=== PATIENT | male | born 1950 | race Caucasian/White ===

== ENCOUNTER 2016-05-08 11:36 | Emergency (ER) | payer MEDICARE ==
[2014-11-19 09:04] VITALS: BMI 35.3
[~2016-05-08 11:36] MED LIST: AMITRIPTYLINE H50 MG PO; BAYER CHEWABLE81 MG PO; CELEXA20 MG PO; FLOMAX0.4 MG PO; LIPITOR20 MG PO; MOBIC7.5 MG PO; MORPHINE SULFAT30 M4 PO; PRINIVIL20 MG PO; TIROSINT125 MCG PO; TOPROL XL100 MG PO; TRICOR145 MG PO; VITAMIN D5000 UNIT PO
== END 2016-05-08 12:00 | disposition left against medical advice (07) ==
LOC: D.ER 11:36
DX: T15.92XA Foreign body on external eye, part unspecified, left eye, initial encounter (principal); X58.XXXA Exposure to other specified factors, initial encounter; Y93.9 Activity, unspecified; Y92.9 Unspecified place or not applicable

== ENCOUNTER → 2017-09-21 08:07 | Outpatient (CLI) | payer MEDICARE ==
[2014-11-19 09:04] VITALS: BMI 35.3
== END | disposition home or self-care (01) ==
LOC: D.CT 08:00
DX: M79.89 Other specified soft tissue disorders (principal)

== ENCOUNTER → 2017-10-16 07:29 | Outpatient (CLI) | payer MEDICARE ==
[2014-11-19 09:04] VITALS: BMI 35.3
== END | disposition home or self-care (01) ==
LOC: D.RT 07:29
DX: R06.02 Shortness of breath (principal)

== ENCOUNTER → 2017-11-02 10:02 | Outpatient (CLI) | payer MEDICARE ==
[2014-11-19 09:04] VITALS: BMI 35.3
== END | disposition home or self-care (01) ==
LOC: D.CT 10:02
DX: J44.9 Chronic obstructive pulmonary disease, unspecified (principal)

== ENCOUNTER → 2017-11-29 07:52 | Outpatient (CLI) | payer MEDICARE ==
[2014-11-19 09:04] VITALS: BMI 35.3
== END | disposition home or self-care (01) ==
LOC: D.CT 07:52
DX: J84.10 Pulmonary fibrosis, unspecified (principal)

== ENCOUNTER 2018-03-13 08:41 | Inpatient (IN) | payer MEDICARE ==
[2018-03-13] VITALS (12 sets, daily range): BP systolic 78–125; BP diastolic 42–72; Ht 185.4 cm; Wt 123.9 kg
[~2018-03-13] VITALS: Ht 185.4 cm; Wt 123.9 kg
[2018-03-13] MEDS ORDERED: SPIRIVA RESPIMAT4 G1 INH (08:47)
[2018-03-13] MEDS ORDERED: SYMBICORT 16010.2 GM INH (08:47)
[2018-03-13] MEDS ORDERED: BENADRYL25 MG PO (08:47)
[2018-03-13] MEDS ORDERED: VENTOLIN HFA18 GM INH (08:47)
--- NOTE | 2018-03-13 09:12 | NUR ---
PT PLACED ON DROPLET PRECATIONS ISOLATION D/T REPORTS OF POSITIVE INFUENZA TEST JUST GRINDER SET UP OPERATOR INTERNAL AT OUTSIDE FACILITY.
[2018-03-13 09:37] LABS: BASOPHILS 0.2 % (0-2); EOSINOPHILS 0.4 % (0-7); HEMATOCRIT 39.2 % (42.0-54.0); IMMATURE GRANULOCYTES 0.2 % (0-5); LYMPHOCYTES 11.7 % (15-50); MCH 29.4 pg (26.0-34.0); MCHC 33.2 g/dL (31.0-37.0); MCV 88.7 fL (80.0-100.0); MEAN PLATELET VOLUME 10.2 fL (7.4-10.4); MONOCYTES 8.4 % (2-11); NEUTROPHILS 79.1 % (40-80); PLATELET COUNT 238 10x3/uL (130-400); RBC 4.42 10x6/uL (4.20-6.10); RDW 13.8 % (11.5-14.5); WBC 8.2 10x3/uL (4.8-10.8)
[2018-03-13 09:40] LABS: APTT 33.6 SECONDS (22.8-39.4); INR 0.95 (0.85-1.17); PROTIME 12.2 SECONDS (11.6-15.0)
[2018-03-13 09:50] LABS: ALBUMIN 3.4 g/dL (3.4-5.0); ALKALINE PHOSPHATASE 92 U/L (46-116); ALT (SGPT) 38 U/L (10-68); BILIRUBIN - TOTAL 0.29 mg/dL (0.2-1.3); CALC OSMOLALITY 279 mosm/kg (275-300); CALCIUM 8.6 mg/dL (8.5-10.1); CARBON DIOXIDE 31.3 mmol/L (21.0-32.0); CHLORIDE - SERUM 98 mmol/L (98-107); CREATININE - SERUM 1.8 mg/dL (0.6-1.3); GLUCOSE 114 mg/dL (74-106); POTASSIUM - SERUM 3.8 mmol/L (3.5-5.1); PROTEIN - SERUM 7.5 g/dL (6.4-8.2); SODIUM 138 mmol/L (136-145); UREA NITROGEN 21 mg/dL (7-18); eGFR NON AFRICAN AMERICAN 40 mL/min (90-120)
[2018-03-13 09:56] LABS: CKMB 1.9 U/L (0.0-3.6); CREATINE KINASE 169 UL (21-232); MAGNESIUM - SERUM 2.1 mg/dL (1.8-2.4); PRO BNP 68 pg/mL (0-125); TROPONIN-I < 0.017 ng/mL (0.000-0.060)
--- NOTE | 2018-03-13 10:37 | NUR ---
PT ASSISTED TO THE BATHROOM AND THEN BACK TO ROOM. RECLINING CHAIR PROVIDED FOR PT COMFORT. WATER PROVIDED UPON REQUEST. PT AWARE HE CANNOT HAVE BLANKET AT THIS TIME D/T ELEVATED TEMP.
--- NOTE | 2018-03-13 11:37 | NUR ---
ORDERED LEVAQUIN THAT WAS INITIATED AT 0956, COMPLETE AT 1136.
--- NOTE | 2018-03-13 13:17 | NUR ---
DR. MILIAN NOTIFIED BY THIS NURSE THAT PT'S BP TRENDING DOWNWARDS AND PT IS HYPOTENSIVE AT 78/55. ONE LITER NS BOLUS ADMINISTERED AT THIS TIME. DR. MILIAN STATES HE WILL SEE PT IN ED SHORTLY.
--- NOTE | 2018-03-13 14:26 | NUR ---
NS BOLUS INITIATED AT 1316 COMPLETE AT 1426.
--- NOTE | 2018-03-13 14:30 | NUR ---
DR. RODRIGUES ROUNDING. THIS NURSE WHEN PT GOT ON FLOOR TOLD LUANA VO TO PUT ISOLATION SIGN ON DOOR BUT INSTEAD PUT IT ON NURSES STATION COUNTER AND TOLD OTHER LUANA TORIBIO TO PUT IT ON DOOR LATER BUT DR. TOWNSEND WAS ALREADY IN ROOM. WAS VERY UPSET. ISOLATION GOWNS AND MASK AND GLOVES WERE OUTSIDE OF DOOR JUST NOT SIGN.
--- NOTE | 2018-03-13 16:06 | NUR ---
PT ARRIVED TO MED 2 BY BED WITH ER NURSE. CL IN REACHL. PT DENIES NEEDS OR PAIN. WCTM
--- NOTE | 2018-03-13 16:30 | NUR ---
ISOLATION SIGN ON DOOR AND ISOLATION PRECAUTIONS IN PLACE.
--- NOTE | 2018-03-13 17:45 | NUR ---
PT SITTING UP IN BED. CL IN REACH. PT DENIES NEEDS OR PAIN. ISOLATION PRECAUTIONS UP.
--- NOTE | 2018-03-13 19:15 | NUR ---
TO PT ROOM - C/O SEVERE CHEST PAIN FROM ACID REFLUX AND NAUSEA. PAIN 7/10. PT STATES THAT THE PAIN DOES NOT RADIATE, OR HURT ANYWHERE ELSE, IT IS JUST SEVER EPIGASTRIC PAIN. PT WAS NOT HOOKED UP TO ANY FLUIDS, BUT HAS IV ACCESS IN L AC. ADMINISTERED PRESCRIBED ANALGESID AND ANTIEMETIC PER MD ORDERS. PT STATED CONCERNS OF TAMIFLU CAUSING EPIGASTRIC PAIN. EDUCATED PT THAT HIS PAIN HAD NOT BEEN CONTROLLED ALL DAY AND THAT IF THE TAMIFLU WAS CAUSING THE PAIN, WE COULD STOP IT AFTER THE INITIAL PAIN MEDICATION, IF THE ANALGESIC WAS NOT WORKING. REASSESSED PAIN 30 MIN LATER AND WAS AT 4/10, WHICH WAS BEARABLE FOR THE PATIENT. PT AGREED TO CONTINUE TAMIFLU. DROPLET PRECAUTIONS IN EFFECT. WCTM AND FOLLOW POC. SR UP X2, CL IN REACH, NS NOW RUNNING AT 100 ML/HR PER MD ORDER. IV SITE WNL, AT BEDSIDE.
[2018-03-14 00:14] VITALS: BP 100/63
[2018-03-14 04:00] VITALS: BP 122/76
--- NOTE | 2018-03-14 05:02 | NUR ---
PT RESTING QUIETLY IN BED, NO PAIN OR DISCOMFORT NOTED AT THIS TIME. NO S/S OF DISTRESS, RR EVEN AND UL. AT BEDSIDE. NS INFUSING AT 100 ML/HR. CL IN REACH, SR UP X2, BED IN LOW POSITION. WILL CONTINUE TO OBSERVE.
[2018-03-14 06:16] LABS: BASOPHILS 0.1 % (0-2); EOSINOPHILS 0 % (0-7); HEMATOCRIT 35.9 % (42.0-54.0); HEMOGLOBIN 11.7 g/dL (13.5-17.5); IMMATURE GRANULOCYTES 0.1 % (0-5); LYMPHOCYTES 8.2 % (15-50); MCH 28.9 pg (26.0-34.0); MCHC 32.6 g/dL (31.0-37.0); MCV 88.6 fL (80.0-100.0); MEAN PLATELET VOLUME 10.5 fL (7.4-10.4); MONOCYTES 8.5 % (2-11); NEUTROPHILS 83.1 % (40-80); PLATELET COUNT 212 10x3/uL (130-400); RBC 4.05 10x6/uL (4.20-6.10); WBC 9.4 10x3/uL (4.8-10.8)
[2018-03-14 06:30] LABS: ANION GAP 11.8 mmol/L (8-16); CALCIUM 7.7 mg/dL (8.5-10.1); CARBON DIOXIDE 29.3 mmol/L (21.0-32.0); CREATININE - SERUM 1.4 mg/dL (0.6-1.3); MAGNESIUM - SERUM 2.2 mg/dL (1.8-2.4); PHOSPHOROUS 3.4 mg/dL (2.5-4.9); POTASSIUM - SERUM 4.1 mmol/L (3.5-5.1)
--- NOTE | 2018-03-14 07:30 | NUR ---
RESTING QUIETLY IN BED WITH EYES CLOSED. RESP EVEN,NONLABORED. FAMILY AT BEDSIDE.
[2018-03-14 08:03] VITALS: BP 155/77
--- NOTE | 2018-03-14 08:30 | NUR ---
ASSESSMENT COMPLETE. IV TO L AC PATENT. DROPLET ISOLATION. O2 2L NC IN USE. FAMILY AT BEDSIDE. DENIES ANY NEEDS AT THIS TIME.
[2018-03-14 09:11] LABS: APPEARANCE CLEAR (CLEAR); BACTERIA FEW /hpf (NONE SEEN); BILIRUBIN NEGATIVE (NEGATIVE); CALCIUM OXALATE CRYSTALS 0-5 /hpf (NONE SEEN); COLOR DK YELLOW (YELLOW); EPITHELIAL CELLS 0-5 /hpf (0-5); GLUCOSE NEGATIVE (NEGATIVE); KETONE NEGATIVE (NEGATIVE); MUCUS <1+ /lpf (NONE SEEN); NITRITE NEGATIVE (NEGATIVE); PROTEIN TRACE mg/dL (NEGATIVE); UROBILINOGEN NORMAL (NORMAL); WHITE CELLS - URINE RARE /hpf (0-5)
[2018-03-14 11:30] VITALS: BP 114/76
--- NOTE | 2018-03-14 12:00 | NUR ---
NO CHANGES NOTED AT THIS TIME.
--- NOTE | 2018-03-14 14:25 | NUR ---
DENIES ANY NEEDS AT THIS TIME. FAMILY AT BEDSIDE.
--- NOTE | 2018-03-14 15:00 | NUR ---
DR MILIAN BY TO SEE PATIENT. PATIENT NOTIFIED OF PAIN WITH SWALLOWING FOOD IN CHEST. DENIES ANY PAIN DOWN EITHER ARM OR JAW PAIN. PAIN ONLY OCCURS WITH SWALLOWING.
--- NOTE | 2018-03-14 15:55 | NUR ---
CALLED TO ROOM BY PATIENT. BLOOD NOTED ON FACE FROM NOSE DOWN TO CHIN. FACE CLEANED. NO FURTHER BLEEDING NOTED FROM NOSE. HUMIDITY APPLIED TO O2. SITTING UP IN CHAIR. CALL LIGHT WITHIN REACH.
[2018-03-14 17:02] VITALS: BP 129/65
--- NOTE | 2018-03-14 18:23 | NUR ---
MORPHINE GIVEN SLOW IVP FOR COMPLAINT OF BACK PAIN. FAMILY AT BEDSIDE. DENIES ANY NEEDS AT THIS TIME.
--- NOTE | 2018-03-14 19:45 | NUR ---
INITIAL ROUNDS COMPLETED - PT SITTING UP IN CHAIR. SLIGHT DISCOMFORT IN CHEST FROM ACID REFLUX, BUT PT STATES IT IS BEARABLE. OFFERED PAIN MEDICATION, PT DENIES NEED. RR EVEN AND UL, ON 2L OF VIA NC. AT BEDSIDE. IV PATENT AND GOOD BLOOD RETURN. A/0 X4, DENIES FURTHER NEEDS AT THIS TIME. WILL CONTINUE TO OBSERVE AND FOLLOW POC. DROPLET PRECAUTIONS IN EFFECT. CL IN REACH, SR UP X2, BED IN LOW POSITION.
[2018-03-14 20:00] VITALS: BP 151/68
[2018-03-15] VITALS (7 sets, daily range): BP systolic 133–158; BP diastolic 69–89
--- NOTE | 2018-03-15 03:55 | NUR ---
PT RESTING QUIETLY WITH EYES CLOSED. NO S/S OF DISTRESS, RR EVEN AND UL. AT BEDSIDE. 02 ON AT 2L VIA NC. NO NEEDS NOTED AT THIS TIME. WILL CONTINUE TO MONITOR NEEDS. CL IN REACH, SR UP X2, BED IN LOWEST POSITION. DROPLET PRECAUTIONS IN EFFECT.
[2018-03-15 06:09] LABS: BASOPHILS 0.2 % (0-2); EOSINOPHILS 0.6 % (0-7); HEMATOCRIT 35.9 % (42.0-54.0); HEMOGLOBIN 11.5 g/dL (13.5-17.5); IMMATURE GRANULOCYTES 0.2 % (0-5); LYMPHOCYTES 15.8 % (15-50); MCH 28.4 pg (26.0-34.0); MCV 88.6 fL (80.0-100.0); MEAN PLATELET VOLUME 10.6 fL (7.4-10.4); MONOCYTES 8.5 % (2-11); NEUTROPHILS 74.7 % (40-80); PLATELET COUNT 214 10x3/uL (130-400); RBC 4.05 10x6/uL (4.20-6.10); RDW 13.7 % (11.5-14.5)
[2018-03-15 06:33] LABS: CALCIUM 8.3 mg/dL (8.5-10.1); CARBON DIOXIDE 29.9 mmol/L (21.0-32.0); CHLORIDE - SERUM 103 mmol/L (98-107); GLUCOSE 106 mg/dL (74-106); POTASSIUM - SERUM 3.8 mmol/L (3.5-5.1); SODIUM 141 mmol/L (136-145); eGFR NON AFRICAN AMERICAN 90 mL/min (90-120)
[2018-03-15 06:34] LABS: CALC OSMOLALITY 280 mosm/kg (275-300); CREATININE - SERUM 0.9 mg/dL (0.6-1.3); UREA NITROGEN 12 mg/dL (7-18)
[2018-03-15 06:38] LABS: WBC 6.2 10x3/uL (4.8-10.8)
--- NOTE | 2018-03-15 07:35 | NUR ---
REPORT RECEIVED. WILL CONTINUE WITH POC. PT CURRENTLY LYING SEMI FOWLERS. CALL LIGHT W/I REACH. AT BEDSIDE. RR EVEN AND UNLABORED ON 2L 02. PIV IS SALINE LOCKED. PT COMPLAINS OF HEARTBURN. REASSURED PT THAT I WOULD LOOK INTO CURRENT MEDS AND CALL PHYSICIAN IF THERE IS NO IMPROVEMENT. PT DENIES ANY FURTHER NEEDS. WILL CTM.
--- NOTE | 2018-03-15 10:54 | NUR ---
RESTS IN ISOLATION ROOM. AT BS. CALL LIGHT IN REACH. WILL CONT. PLAN OF CARE.
--- NOTE | 2018-03-15 12:05 | NUR ---
REPORTED PT INDIGESTION AND DIARRHEA TO CATE GOODWIN WHO THEN INSTRUCTED ME TO ORDER CDT AND CONSULT GI. CONSULT ORDERED TO . WILL COLLECT NEXT BM FOR SAMPLE. AT BEDSIDE. ABX INFUSION COMPLETE AND PIV IS SALINE LOCKED. PT REFUSED FSBS STATING, "I AM NOT A DIABETIC." WILL CTM.
[2018-03-15 16:18] LABS: CKMB 2.4 U/L (0.0-3.6); CREATINE KINASE 135 UL (21-232)
[2018-03-15 16:20] LABS: TROPONIN-I < 0.017 ng/mL (0.000-0.060)
--- NOTE | 2018-03-15 18:21 | NUR ---
PT CURRENTLY SITTING IN CHAIR. CALL LIGHT W/I REACH. RR EVEN AND UNLABORED ON 2L 02. PT DENIES ANY NEEDS AT THIS TIME. WILL PASS REPORT AND CONTINUE WITH POC.
--- NOTE | 2018-03-15 19:53 | NUR ---
REPORT RECEIVED. PT SITTING UP IN BED WITH EYES OPEN, RR EVEN AND UNLABORED. OXYGEN AT 2 LITERS BY NASAL CANNULA. INTRODUCED SELF TO PT. PT DENIES FURTHER NEEDS. DROPLET PRECAUTIONS IN PLACE ON DOOR. NO S/S OF DISTRESS NOTED. BED IN LOW POSITION. CALL LIGHT IN REACH. WILL CTM.
--- NOTE | 2018-03-15 21:52 | NUR ---
ADMINISTERED ORDERED ANALGESIC FOR COMPLAINTS OF PAIN IN LOWER BACK, PT STATES THE PAIN IS A 3 OR 4 HOWEVER THE PT STATES THE PAIN IS UNBEARABLE.
[2018-03-15 23:34] LABS: CKMB 1.7 U/L (0.0-3.6); CREATINE KINASE 116 UL (21-232)
[2018-03-15 23:35] LABS: TROPONIN-I < 0.017 ng/mL (0.000-0.060)
--- NOTE | 2018-03-16 01:23 | NUR ---
PT LYING IN BED WITH EYES OPEN, RR EVEN AND UNLABORED. OXYGEN AT 2 LITERS BY NASAL CANNULA. AT BEDSIDE. LEFT AC IV DRESSING CHANGED. DENIES FURTHER NEEDS. CALL LIGHT IN REACH. WILL CTM.
[2018-03-16 03:22] LABS: BASOPHILS 0.2 % (0-2); EOSINOPHILS 0.8 % (0-7); HEMATOCRIT 34.5 % (42.0-54.0); HEMOGLOBIN 11.2 g/dL (13.5-17.5); IMMATURE GRANULOCYTES 0.2 % (0-5); LYMPHOCYTES 18.2 % (15-50); MCH 28.2 pg (26.0-34.0); MCHC 32.5 g/dL (31.0-37.0); MCV 86.9 fL (80.0-100.0); MEAN PLATELET VOLUME 9.8 fL (7.4-10.4); MONOCYTES 8.3 % (2-11); NEUTROPHILS 72.3 % (40-80); PLATELET COUNT 222 10x3/uL (130-400); RBC 3.97 10x6/uL (4.20-6.10); RDW 13.3 % (11.5-14.5); WBC 5.2 10x3/uL (4.8-10.8)
--- NOTE | 2018-03-16 03:22 | NUR ---
PT LYING IN BED WITH EYES CLOSED, RR EVEN AND UNLABORED. NO S/S OF DISTRESS. BED IN LOW POSITION. AT BEDSIDE. CALL LIGHT IN REACH. WILL CTM.
[2018-03-16 03:49] LABS: CALC OSMOLALITY 278 mosm/kg (275-300); CALCIUM 8.3 mg/dL (8.5-10.1); CHLORIDE - SERUM 101 mmol/L (98-107); CKMB 1.8 U/L (0.0-3.6); CREATINE KINASE 105 UL (21-232); CREATININE - SERUM 1.1 mg/dL (0.6-1.3); GLUCOSE 126 mg/dL (74-106); SODIUM 139 mmol/L (136-145); UREA NITROGEN 9 mg/dL (7-18); eGFR NON AFRICAN AMERICAN 71 mL/min (90-120)
[2018-03-16 03:50] LABS: POTASSIUM - SERUM 3.1 mmol/L (3.5-5.1); TROPONIN-I < 0.017 ng/mL (0.000-0.060)
[2018-03-16 03:55] VITALS: BP 154/90
--- NOTE | 2018-03-16 04:18 | NUR ---
RN NOTE: PATIENT IS RESTING COMFORTABLY IN BED. RESPIRATIONS ARE EVEN AND UNLABORED. NO S/S OF DISTRESS. CALL LIGHT WITHIN REACH. WILL CPOC.
--- NOTE | 2018-03-16 06:27 | NUR ---
PT LYING IN BED WITH EYES OPEN, RR EVEN AND UNLABORED. AT BEDSIDE. MORNING MEDICATIONS ADMINISTERED WITHOUT ISSUE. PT DENIES FURTHER NEEDS, CONTINUES TO REFUSE FINGERSTICK BLOOD SUGARS. STATES HE IS NOT A DIABETIC. CALL LIGHT IN REACH. WILL CTM.
[2018-03-16] MEDS ORDERED: TAMIFLU75 MG PO (08:42)
[2018-03-16] MEDS ORDERED: LEVAQUIN750 MG PO (08:42)
[2018-03-16] MEDS ORDERED: CARAFATE1 G PO (08:43)
[2018-03-16] MEDS ORDERED: PROTONIX40 MG PO (08:43)
--- NOTE | 2018-03-16 09:53 | NUR ---
PT LYING IN BED. NO REQUESTS/CONCERNS AT THIS TIME. CL IN REACH. SRX2.
--- NOTE | 2018-03-16 10:25 | NUR ---
RESTS IN ISOLATION. RESTS IN BED WITH EYES CLOSED. CALL LIGHT IN REACH. WILL MONITOR NEEDS.
[2018-03-16 10:41] VITALS: BP 146/82
--- NOTE | 2018-03-16 11:05 | NUR ---
PT IS 91% O2 AT REST ON R/A. PUT O2 ON 1L
--- NOTE | 2018-03-16 12:20 | NUR ---
PT WAS ON 1L OF OXYGEN SATTING 98%. TOOK PT OFF FOR OVER 10 MINUTES AND PATIENT MAINTAINED HIS SAT AT 97%
[2018-03-16] MEDS ORDERED: SPIRIVA18 MCG INH (16:12)
[2018-03-16] MEDS ORDERED: SYMBICORT 16010.2 GM INH (16:12)
[2018-03-16] MEDS ORDERED: IPRAT-ALBUT 0.5-3 ML UPD (16:14)
[2018-03-16] MEDS ORDERED: VENTOLIN HFA18 GM INH (16:14)
[2018-03-16 17:11] VITALS: BP 146/66
--- NOTE | 2018-03-16 17:23 | MORECARE ---
CASE MANAGEMENT DISCHARGE SUMMARY PATIENT: BAUDILIO SWARTZ UNIT: [id number] ADM DATE: 03/13/18 AGE: 67 : 54 SEX: M ROOM/BED: D.2140 AUTHOR: FIDE LE PHYSICIAN: REFERRING PHYSICIAN: SEAN MILIAN MD DATE OF SERVICE: 03/16/18 Discharge Plan Patient Name: BAUDILIO SWARTZ [facility] [facility] 1950 Planned Disposition: Home Anticipated Discharge Date: 03/16/18 Discharge Date: Expected LOS: 3 Initial Reviewer: [email or web address] Initial Review Date: 03/13/2018 Generated: 03/16/18 6:23 pm DCPIA - Discharge Planning Initial Assessment Updated by [email or web address]: Ann España on 03/16/18 5:20 pm * Is the patient Alert and Oriented? Yes * How many steps to enter\exit or inside your home? 3/4 * PCP NO PCP * Pharmacy [facility] * Preadmission Environment Home with Family * ADLs Independent * Equipment Oxygen * Other Equipment Obtained a walker and nebulizer today for discharge to home. * List name and contact numbers for known caregivers / representatives who currently or will assist patient after discharge: Elodia Swartz- - [phone] * Verbal permission to speak to the caregivers and representatives has been obtained from the patient. Yes * Community resources currently utilized None * Please name any agencies selected above. N/A * Additional services required to return to the preadmission environment? No * Can the patient safely return to the preadmission environment? Yes * Has this patient been hospitalized within the prior 30 days at any hospital? No Patient Name: BAUDILIO SWARTZ Page [id number] at 1723 All edits/amendments must be made on the electronic document DICTATION DATE: 03/16/181721 WAITSTAFF: XOCHILT 03/16/181721 RPT#: [id number] DC DATE: STATUS: ADM IN [facility] [address] [place] [address] END OF REPORT
--- NOTE | 2018-03-16 17:36 | MORECARE ---
CASE MANAGEMENT DISCHARGE SUMMARY PATIENT: BAUDILIO SWARTZ UNIT: [id number] ADM DATE: 03/13/18 AGE: 67 : 54 SEX: M ROOM/BED: D.2140 AUTHOR: REY,DOC PHYSICIAN: REFERRING PHYSICIAN: SEAN MILIAN MD DATE OF SERVICE: 03/16/18 Discharge Plan Patient Name: BAUDILIO SWARTZ Facility: [facility]:[place] : 1950 Planned Disposition: Home Anticipated Discharge Date: 03/16/18 Discharge Date: Expected LOS: 3 Initial Reviewer: [email or web address] Initial Review Date: 03/13/2018 Generated: 03/16/18 6:36 pm Comments DCP- Discharge Planning Updated by [email or web address]: Ann España on 03/16/18 4:[address] LATE ENTRY 1140 PATIENT'S HAD CALLED [facility] FOR A WALKER. MD ORDER OBTAINED AND FACE SHEET FAXED WITH ORDER FOR DELIVERY OF THE WALKER TO THE PATIENT'S ROOM. KELLI SPOKE WITH THE PRIMARY NURSE REGARDING O2 SAT LEVELS FOR POSSIBLE PORTABLE OXYGEN . PATIENT HAS HOME O2 AND STATIONARY UNIT FOR OXYGEN VIA NASAL CANNULA AT NIGHT. HE WAS ADMITTED W/ RESP FAILURE, HYPOXIA, AECOPD AND POSITIVE FOR FLU. PATIENT WILL ALSO NEED A NEBULIZER. 1240 KELLI SPOKE WITH EZEKIEL FROM [facility]. HE WILL DELIVER THE NEBULIZER TO THE PATIENT'S HOME. NEW MDI OBTAINED FROM PHARMACY TO INSTRUCT THE PATIENT IS USE. PATIENT'S IS AT THE BEDSIDE. SHE WILL PROVIDE TRANSPORTATION TO HOME. THE WALKER IS AT THE BEDSIDE. PATIENT HAS 3/4 STEPS TO ENTER HIS HOME. HE HAS A RAILING. HE DENIES ANY NEEDS. EXPRESSED SOME CONCERN REGARDING DUONEBS. DISCUSSED WITH THE SELLING UNDERWRITER. HIS PHARMACY IS CLOSED. WILL ASSIST WITH DUONEBS FOR THE WEEKEND. PATIENT WILL HAVE TO CHECK THE COST WITH HIS PHARMACY. DCPIA - Discharge Planning Initial Assessment Updated by [email or web address]: Ann España on 03/16/18 5:20 pm * Is the patient Alert and Oriented? Yes * How many steps to enter\exit or inside your home? 3/4 * PCP NO PCP * Pharmacy [facility] * Preadmission Environment Home with Family * ADLs Independent * Equipment Oxygen * Other Equipment Obtained a walker and nebulizer today for discharge to home. * List name and contact numbers for known caregivers / representatives who currently or will assist patient after discharge: Elodia Swartz- - [phone] * Verbal permission to speak to the caregivers and representatives has been obtained from the patient. Yes * Community resources currently utilized None * Please name any agencies selected above. N/A * Additional services required to return to the preadmission environment? No * Can the patient safely return to the preadmission environment? Yes * Has this patient been hospitalized within the prior 30 days at any hospital? No Last DP export: 03/16/18 4:23 p Patient Name: BAUDILIO SWARTZ Page [id number] at 1736 All edits/amendments must be made on the electronic document DICTATION DATE: 03/16/181735 ADMINISTRATIVE HEARING OFFICER: XOCHILT 03/16/181735 RPT#: [id number] DC DATE: STATUS: ADM IN [facility] [address] [place] [address] END OF REPORT
--- NOTE | 2018-03-16 18:18 | NUR ---
PT ESCORTED OUT VIA WHEELCHAIR WITH AID TO POV
--- NOTE | 2018-03-18 09:31 | MORECARE ---
CASE MANAGEMENT DISCHARGE SUMMARY PATIENT: BAUDILIO SWARTZ UNIT: [id number] ADM DATE: 03/13/18 AGE: 67 : 54 SEX: M ROOM/BED: D.2140 AUTHOR: REY,DOC PHYSICIAN: REFERRING PHYSICIAN: SEAN MILIAN MD DATE OF SERVICE: 03/18/18 Discharge Plan Patient Name: BAUDILIO SWARTZ Facility: [facility]:[place] : 1950 Planned Disposition: Home Anticipated Discharge Date: 03/16/18 Discharge Date: 03/16/2018 Expected LOS: 3 Initial Reviewer: [email or web address] Initial Review Date: 03/13/2018 Generated: 03/18/18 10:30 am Comments DCP- Discharge Planning Updated by [email or web address]: Ann España on 03/16/18 4:[address] LATE ENTRY 1140 PATIENT'S HAD CALLED [facility] FOR A WALKER. MD ORDER OBTAINED AND FACE SHEET FAXED WITH ORDER FOR DELIVERY OF THE WALKER TO THE PATIENT'S ROOM. KELLI SPOKE WITH THE PRIMARY NURSE REGARDING O2 SAT LEVELS FOR POSSIBLE PORTABLE OXYGEN . PATIENT HAS HOME O2 AND STATIONARY UNIT FOR OXYGEN VIA NASAL CANNULA AT NIGHT. HE WAS ADMITTED W/ RESP FAILURE, HYPOXIA, AECOPD AND POSITIVE FOR FLU. PATIENT WILL ALSO NEED A NEBULIZER. 1240 KELLI SPOKE WITH EZEKIEL FROM [facility]. HE WILL DELIVER THE NEBULIZER TO THE PATIENT'S HOME. NEW MDI OBTAINED FROM PHARMACY TO INSTRUCT THE PATIENT IS USE. PATIENT'S IS AT THE BEDSIDE. SHE WILL PROVIDE TRANSPORTATION TO HOME. THE WALKER IS AT THE BEDSIDE. PATIENT HAS 3/4 STEPS TO ENTER HIS HOME. HE HAS A RAILING. HE DENIES ANY NEEDS. EXPRESSED SOME CONCERN REGARDING DUONEBS. DISCUSSED WITH THE MINI LAB OPERATOR. HIS PHARMACY IS CLOSED. WILL ASSIST WITH DUONEBS FOR THE WEEKEND. PATIENT WILL HAVE TO CHECK THE COST WITH HIS PHARMACY. DCPIA - Discharge Planning Initial Assessment Updated by [email or web address]: Ann España on 03/16/18 5:20 pm * Is the patient Alert and Oriented? Yes * How many steps to enter\exit or inside your home? 3/4 * PCP NO PCP * Pharmacy [facility] * Preadmission Environment Home with Family * ADLs Independent * Equipment Oxygen * Other Equipment Obtained a walker and nebulizer today for discharge to home. * List name and contact numbers for known caregivers / representatives who currently or will assist patient after discharge: Elodia Swartz- - [phone] * Verbal permission to speak to the caregivers and representatives has been obtained from the patient. Yes * Community resources currently utilized None * Please name any agencies selected above. N/A * Additional services required to return to the preadmission environment? No * Can the patient safely return to the preadmission environment? Yes * Has this patient been hospitalized within the prior 30 days at any hospital? No Last DP export: 03/16/18 4:36 p Patient Name: BAUDILIO SWARTZ Page [phone] at 0931 All edits/amendments must be made on the electronic document DICTATION DATE: 03/18/18929 AREA SALES MANAGER: XOCHILT 03/18/18929 RPT#: [id number] DC DATE:03/16/18 STATUS: DIS IN [facility] [address] [place] [address] END OF REPORT
== END 2018-03-16 18:21 | disposition home or self-care (01) | DRG 177 ==
LOC: D.ER 08:41 → D.EDHOLD 09:46 → D.M2 09:46
PROVIDERS: Emergency Medicine; ADMIT Internal Medicine Nephrology
DX: J11.08 Influenza due to unidentified influenza virus with specified pneumonia (principal); J96.01 Acute respiratory failure with hypoxia; J15.6 Pneumonia due to other Gram-negative bacteria; R57.1 Hypovolemic shock; J44.0 Chronic obstructive pulmonary disease with (acute) lower respiratory infection; J44.1 Chronic obstructive pulmonary disease with (acute) exacerbation; N17.9 Acute kidney failure, unspecified; J13 Pneumonia due to Streptococcus pneumoniae; I10 Essential (primary) hypertension; E78.5 Hyperlipidemia, unspecified; I25.10 Atherosclerotic heart disease of native coronary artery without angina pectoris; D64.9 Anemia, unspecified; E03.9 Hypothyroidism, unspecified; E11.21 Type 2 diabetes mellitus with diabetic nephropathy; F32.9 Major depressive disorder, single episode, unspecified; F41.9 Anxiety disorder, unspecified; N40.0 Benign prostatic hyperplasia without lower urinary tract symptoms; G47.33 Obstructive sleep apnea (adult) (pediatric); Z91.19 Patient's noncompliance with other medical treatment and regimen